=== PATIENT | male | born 1960 | race Caucasian/White ===

== ENCOUNTER 2023-06-17 06:04 | Emergency (ER) | payer SELFPAY ==
[~2023-06-17] VITALS: Ht 172.7 cm; Wt 81.6 kg
[2023-06-17 06:15] VITALS: BP 157/108; PULSE 71; RESP 18; TEMP 97.8; O2SAT 96
[2023-06-17] MEDS ORDERED: TORADOL IV STA (06:27)
[2023-06-17] MEDS ORDERED: TORADOL ONE (06:35)
[2023-06-17 06:42] LABS: BASOPHIL % 0.3 % (0.0-0.2); EOSINOPHIL # 0.1 10^3/uL (0.0-0.2); EOSINOPHIL % 3.1 % (0.0-5.0); HEMATOCRIT(ML) 44.4 % (37.0-53.0); HEMOGLOBIN 15.1 g/dL (13.9-16.3); IG % 0.3 % (0.00-0.50); LYMPHOCYTES # 0.88 10^3/uL1 (1.0-4.8); LYMPHOCYTES % 23.1 % (24.0-44.0); MEAN CORP HGB 29.9 pg (26-34); MEAN CORP VOLUME 87.9 fL (78-100); MONOCYTES # 0.3 10^3/uL (0.3-0.8); MONOCYTES % 8.4 % (5.0-12.0); NEUTROPHIL # 2.5 10^3/uL (1.8-7.7); NEUTROPHILS % 64.8 % (41.0-85.0); RED BLOOD CELL 5.05 10^6/uL (4.50-5.90); RED CELL DISTRIBUTION WIDTH 12.5 % (11.5-14.5); WHITE BLOOD CELL 3.8 10^3/uL (4.5-11.0)
[2023-06-17 07:00] LABS: INFLUENZA VIRUS A ANTIGEN NEGATIVE (NEG); INFLUENZA VIRUS B ANTIGEN NEGATIVE (NEG)
[2023-06-17 07:04] LABS: ALBUMIN(ML) 3.5 g/dL (3.4-5.0); ALBUMIN/GLOBULIN RATIO 0.813; ANION GAP 13.6; CARBON DIOXIDE 29.7 mmol/L (20.0-32); CREATININE SERUM 1.09 mg/dL (0.59-1.40); POTASSIUM 4.3 mmol/L (3.6-5.2)
[2023-06-17 07:20] VITALS: BP 146/88; PULSE 55; RESP 18; O2SAT 98
[2023-06-17 07:34] LABS: PROTHROMBIN PROTIME 10.2 SEC (9.7-11.6)
[2023-06-17 08:05] VITALS: BP 165/87; PULSE 56; RESP 18; TEMP 98.1; O2SAT 97
== END 2023-06-17 08:11 | disposition home or self-care (01) ==
LOC: ER 06:04
DX: R07.89 Other chest pain (principal); E78.00 Pure hypercholesterolemia, unspecified; I10 Essential (primary) hypertension; Z20.822 Contact with and (suspected) exposure to COVID-19
CPT/HCPCS: 99285; 96374; 71045; 87426; 80053; 85025; 36415; 85379; 84484; 87804 ×2; 85610; 85730; 93005; J1885